=== PATIENT | female | born 1960 | race Caucasian/White ===

== ENCOUNTER → 2018-05-10 | Outpatient (CLI) | payer OTHER | END | disposition home or self-care (01) | LOC: KCIC 13:50 | DX: M17.12 Unilateral primary osteoarthritis, left knee (principal); M76.52 Patellar tendinitis, left knee | CPT/HCPCS: 73562 ==

== ENCOUNTER → 2018-11-24 | Outpatient (CLI) | payer OTHER ==
--- NOTE | 2018-11-24 09:12 | KCIC ---
EXAM: Left knee, 3 views. HISTORY: Pain. Fall. COMPARISON: 05/10/2018 FINDINGS: 3 views left knee are obtained. There is mild medial compartment joint space narrowing. There is mild tricompartmental spurring. There is enthesopathy along the patella. There is no joint effusion. IMPRESSION: Mild tricompartmental osteoarthritis of the left knee. Electronically signed by: Karuna Clark MD (11/24/2018 9:09 AM) [id number]
== END | disposition home or self-care (01) ==
LOC: KCIC 08:12
PROVIDERS: ATTEND Internal Medicine
DX: M17.12 Unilateral primary osteoarthritis, left knee (principal); M76.52 Patellar tendinitis, left knee
CPT/HCPCS: 73562